=== PATIENT | female | born 1985 | race Two or more races ===

== ENCOUNTER 2021-08-20 02:34 | Emergency (ER) | payer SELFPAY ==
[~2021-08-20] VITALS: Ht 170.2 cm; Wt 90.7 kg
[2021-08-20 03:00] LABS: BASOPHILS % (AUTO) 0.5 % (0.0-2.0); EOSINOPHILS % (AUTO) 1.2 % (1.0-6.0); HEMATOCRIT 42.7 % (36-46); HEMOGLOBIN 14.3 g/dL (12.0-16.0); LYMPHOCYTES # (AUTO) 2.7 K/uL (1.0-4.8); LYMPHOCYTES % (AUTO) 18.5 % (22.0-44.0); MEAN CORPUSCULAR HEMOGLOBIN 30.8 pg (26.0-34.0); MEAN CORPUSCULAR HGB CONC 33.4 G/dL (31.0-37.0); MEAN CORPUSCULAR VOLUME 92 fL (80-100); MONOCYTES # (AUTO) 0.8 K/uL (0.1-1.0); MONOCYTES % (AUTO) 5.7 % (2.0-9.0); NEUTROPHILS # (AUTO) 10.7 K/uL (1.8-7.7); NEUTROPHILS % (AUTO) 74.1 % (40.0-70.0); PLATELET COUNT (AUTO) 291 K/uL (150-450); RED BLOOD CELL COUNT(AUTO) 4.63 MIL/uL (4.00-5.20); RED CELL DISTRIBUTION WIDTH 13.3 % (11.5-14.5)
[2021-08-20 03:09] LABS: ANION GAP 9 mmol/L (8-16); CALCIUM, TOTAL 9.3 mg/dL (8.8-10.5); CARBON DIOXIDE 29 mmol/L (22-29); CHLORIDE 101 mmol/L (98-107); CREATININE 0.91 mg/dL (0.60-1.30); GLOMERULAR FILTR. RATE CALC > 60 mL/min (>60); GLUCOSE,RANDOM 96 mg/dL (70-110); POTASSIUM 3.8 mmol/L (3.5-5.1); SODIUM SERUM 139 mmol/L (136-145); UREA NITROGEN, BLOOD 9 mg/dL (7-18)
[2021-08-20 03:21] LABS: ALANINE AMINOTRANSFERASE 44 U/L (12-78); ALKALINE PHOSPHATASE 67 U/L (46-116); ASPARTATE AMINOTRANSFERASE 18 U/L (15-37); BILIRUBIN,TOTAL 0.4 mg/dL (0.1-1.0); HCG,QUANTITATIVE 1 mIU/mL (0-6); INR 0.9 (0.9-1.1); LIPASE 107 U/L (73-393); TOTAL PROTEIN, SERUM 8.5 g/dL (6.4-8.2)
[2021-08-20] MEDS ORDERED: IOHEXOL 350 MG/ML 100 ML VIAL ONE (03:24)
[2021-08-20] MEDS ORDERED: SODIUM CHLORIDE 0.9% 100 ML ONE (03:24)
[2021-08-20] MEDS: SODIUM CHLORIDE 0.9% 1,000 ML IV ONE (03:31)
[2021-08-20] MEDS: ONDANSETRON HCL 4 MG/2 ML VIAL IVP ONE (03:32)
[2021-08-20] MEDS: BARIUM SULFATE 0.1% SUSPENSION 450 ML BOTTLE PO ONE (03:32)
[2021-08-20] MEDS: MORPHINE SULFATE 4 MG/ML SYRINGE IVP ONE ×2 (03:32→05:23)
[2021-08-20 04:23] LABS: APPEARANCE,URINE CLEAR (CLEAR); BILIRUBIN,URINE NEGATIVE (NEGATIVE); GLUCOSE, URINE (UA) NEGATIVE (NEGATIVE); KETONES,URINE TRACE mg/dL (NEGATIVE); LEUKOCYTE ESTERASE ,URINE SMALL (NEGATIVE); NITRATE,URINE POSITIVE (NEGATIVE); OCCULT BLOOD,URINE NEGATIVE (NEGATIVE); PROTEIN,URINE NEGATIVE (NEGATIVE)
[2021-08-20 04:33] LABS: BACTERIA,URINE Many /HPF (None Seen); RBC,URINE 0-2 /HPF (0-2)
[2021-08-20] MEDS: CEPHALEXIN MONOHYDRATE 500 MG CAPSULE PO ONE (05:23)
[2021-08-20 06:29] VITALS: BP 100/63
== END 2021-08-20 06:30 | disposition home or self-care (01) ==
LOC: EMS 02:35
DX: K92.2 Gastrointestinal hemorrhage, unspecified (principal); R10.9 Unspecified abdominal pain; N39.0 Urinary tract infection, site not specified
CPT/HCPCS: 36415; 74177; 80053; 81001; 82271; 83690; 84702; 85025; 85610; 85730; 86850; 86900; 86901; 87077; 87086; 87186; 96361; 96374; 96375; 96376; 99285; J2270; J2405; J7030; J7050; Q9967

== ENCOUNTER 2022-01-14 12:11 | Day surgery (SDC) | payer OTHER ==
[2022-01-13 13:25] LABS: COVID AG,FIA SOURCE NASOPHARYNGEAL
[~2022-01-14] VITALS: Ht 167.6 cm; Wt 90.9 kg
[~2022-01-14 12:11] MED LIST: SODIUM CHLORIDE 0.9% 1,000 ML IV ONE; SODIUM CHLORIDE 0.9% 1,000 ML ONE
[2022-01-14] MEDS ORDERED: LIDOCAINE/PF 2% 5 ML VIAL IM ONE (12:12)
[2022-01-14] MEDS ORDERED: PROPOFOL 1% 20 ML VIAL IVP ONE (12:12)
== END 2022-01-14 15:40 | disposition home or self-care (01) ==
LOC: SURGERY 12:11
PROVIDERS: ATTEND Internal Medicine Gastroenterology
DX: K62.5 Hemorrhage of anus and rectum (principal); K63.5 Polyp of colon; K64.8 Other hemorrhoids; K25.9 Gastric ulcer, unspecified as acute or chronic, without hemorrhage or perforation; E66.01 Morbid (severe) obesity due to excess calories; E78.00 Pure hypercholesterolemia, unspecified; Z79.899 Other long term (current) drug therapy; Z98.890 Other specified postprocedural states
CPT/HCPCS: 43239; 45380; 84703; 87426; 88305; C9803; J2704; J3490; J7030